=== PATIENT | male | born 1965 | race Caucasian/White ===

== ENCOUNTER 2018-07-05 15:10 | Emergency (ER) | END 2018-07-05 17:05 | disposition home or self-care (01) ==

== ENCOUNTER 2018-11-16 06:29 | Emergency (ER) | payer OTHER ==
[~2018-11-16] VITALS: Ht 167.6 cm; Wt 53.6 kg
[~2018-11-16 06:29] MED LIST: DIABETIC MEDS; GLAUCOMA MEDS
[2018-11-16 06:32] VITALS: BP 178/96; PULSE 107; RESP 20; Ht 167.6 cm; Wt 53.6 kg
[2018-11-16] MEDS ORDERED: IBUP-1542 PO (06:59)
--- NOTE | 2018-11-16 09:03 | ERD ---
ER Documentation Chief Complaint Chief Complaint Complains of a sorethroat x 2 days HPI Patient is a 53-year-old male with hypertension, diabetes, and mute who presents with sore throat. Symptoms started yesterday. He has had no fevers. He has had no treatment as of yet. He has no trouble with breathing. He does have a cough. His primary doctor is Dr. Wilde. ROS All systems reviewed and are negative except as per history of present illness. Medications Home Meds Active Scripts Ibuprofen* (Motrin*) 600 Mg Tab, 600 MG PO Q6H PRN for PAIN AND OR ELEVATED TEMP, #30 TAB Prov:JOANNA FINNEY MD 11/16/18 Reported Medications [Glaucoma Meds] No Conflict Check 05/06/11 [Diabetic Meds] No Conflict Check 05/06/11 Allergies Allergies: Coded Allergies: No Known Allergy (Unverified , 11/16/18) PMhx/Soc History of Surgery: No Anesthesia Reaction: No Hx Neurological Disorder: Yes (MUTE) Hx Respiratory Disorders: No Hx Cardiac Disorders: Yes (htn,hypercholesterolemia) Hx Psychiatric Problems: No Hx Miscellaneous Medical Probl: Yes (dm) Hx Alcohol Use: Yes (OCCASIONAL) Hx Substance Use: No Hx Tobacco Use: No FmHx Family History: diabetes Physical Exam Vitals Vital Signs Date Temp Pulse Resp B/P (MAP) Pulse Ox O2 O2 Flow FiO2 Time Delivery Rate 11/16/18 97.6 107 20 178/96 96 06:32 (123) Physical Exam Const: No acute distress Head: Atraumatic Eyes: Normal Conjunctiva ENT: Erythema to the oropharynx, no tonsillar swelling or pus, no signs of tonsillar abscess, no stridor Neck: Full range of motion. No meningismus. Resp: Clear to auscultation bilaterally Cardio: Regular rate and rhythm, no murmurs Abd: Soft, non tender, non distended. Normal bowel sounds Skin: No petechiae or rashes Back: No midline or flank tenderness Ext: No cyanosis, or edema Neur: Awake and alert Psych: Normal Mood and Affect Procedures/MDM Patient is a 53-year-old male who presents with what appears to be a viral pharyngitis. I see no signs of serious bacterial infection at this time. I d oubt peritonsillar abscess, retropharyngeal abscess, or epiglottitis. I believe outpatient management is appropriate but the patient will need close follow-up with his primary doctor within 1 week. The patient was given a prescription for ibuprofen. Departure Diagnosis: Primary Impression: Pharyngitis Pharyngitis/tonsillitis etiology: unspecified etiology Qualified Codes: J02.9 - Acute pharyngitis, unspecified Additional Impression: Sore throat Condition: Fair Patient Instructions: Self-Care for Sore Throats Referrals: Dr. Wilde Additional Instructions: Llame al doctor nombrado noé (Referral Sources) MAANA y patricia keith KRISH PARA DENTRO DE KEITH SEMANA. Dgale a la secretaria que nosotros le instruimos hacer esta krish.Avise o llame si sal condicin se empeora antes de la krish. JOANNA FINNEY MD Nov 16, 2018 09:03
== END 2018-11-16 07:03 | disposition home or self-care (01) ==
LOC: FTE 06:29
DX: J02.9 Acute pharyngitis, unspecified (principal); I10 Essential (primary) hypertension; E11.9 Type 2 diabetes mellitus without complications
CPT/HCPCS: 99282